=== PATIENT | male | born 1965 | race Two or more races ===

== ENCOUNTER 2023-11-01 12:58 | Emergency (ER) | payer MEDICAID ==
[~2023-11-01] VITALS: Ht 165.1 cm; Wt 74.4 kg
[2023-11-01 14:28] VITALS: BP 175/89; PULSE 91; RESP 16; TEMP 99; O2SAT 97
== END 2023-11-01 15:31 | disposition home or self-care (01) ==
LOC: ER 12:58
DX: S20.211A Contusion of right front wall of thorax, initial encounter (principal); W01.198A Fall on same level from slipping, tripping and stumbling with subsequent striking against other object, initial encounter; Y93.89 Activity, other specified; Y92.59 Other trade areas as the place of occurrence of the external cause; Y99.8 Other external cause status
CPT/HCPCS: 71101